=== PATIENT | female | born 1980 | race Caucasian/White ===

== ENCOUNTER 2016-08-28 08:22 | Day surgery (SDC) | payer OTHER ==
[~2016-08-28] VITALS: Ht 170.2 cm; Wt 117.0 kg
[~2016-08-28 08:22] MED LIST: LEVO175T5 PO; LOSA1TAB69 PO; METF500T4 PO; OXYB5TAB10 PO; PARO40TA3 PO; VERA120T84 PO
[2016-08-28 08:38] VITALS: BP 120/82; PULSE 93; RESP 16; O2SAT 96
[2016-08-28] MEDS ORDERED: 0.9% Sodium Chloride 1,000 ML ONE (09:19)
[2016-08-28] MEDS ORDERED: fentaNYL-PF 50 mCg/mL 2 mL Inj ONE (09:19)
[2016-08-28] MEDS ORDERED: 0.9% Sodium Chloride 1,000 ML IV PRN (09:37)
[2016-08-28] MEDS ORDERED: fentaNYL-PF 50 mCg/mL 2 mL Inj IVPUSH PRN (09:40)
[2016-08-28] MEDS ORDERED: Sodium Chloride LOK Flush 10 mL Syringe IV PRN (09:40)
--- NOTE | 2016-08-28 10:05 | PCM.ENDEGD ---
EGD Date of Service: Aug 28, 2016 Physician Sancehz Beauchamp MD Indication for Procedure Reflux Post Procedure Dx & Findings: Esophagitis Procedure Esophagogastroduodenoscopy PROCEDURE IN DETAIL: The patient was placed in left lateral decubitus position. Bite block was placed. Scope lubricated, placed in posterior pharynx, passed through the cricopharyngeus and esophagus, slowly advanced the entire length of the gastric pouch, pylorus was identified, scope passed through the pylorus and descending portion of duodenum, withdrawn in the antrum, retroflexed upon itself for view of fundus and cardia. Scope was then withdrawn through the oropharynx. Esophagus appeared normal up to the Z line which was at 39 cm. Inflammation edema scarring noted consistent with esophagitis. This is probably LA grade C. There were some evidence of esophagitis extending further up into the proximal esophagus. Biopsies obtained. Stomach was normal. Cardia fundus body antrum pylorus were visualized. Patient had normal mucosa without any ulcers mass or erosions. Normal rugae folds noted. Retroflexion was done. Stomach is easily inflatable and deflated using air. Scope advanced to the distal duodenum. Duodenum showed normal villous structures with normal folds. Impression LA grade C esophagitis status post biopsy Recommendations Prilosec 20 mg once a day. Antireflux diet and lifestyle modifications. Presedation Assessment Risks and Benefits Informed consent was obtained from the patient after all risks and benefits including but not limited to drug reaction, infection, pain, bleeding, perforation, as well as alternatives were discussed. Patient monitoring Continuous pulse oximetry, cardiac monitoring, blood pressure monitoring, IV access, and oxygen at 2L per nasal cannula. Periprocedural Fentanyl: Fentanyl 125mcg Incrementally Midazolam: Midazolam 6mg Incrementally Complications There were no periprocedural complications identified. Post Procedure Plan Post Procedure Recommendations 1. Restrict activities today. 2. Resume normal activities in the morning. 3. Resume medications. 4. GERD behavioral modification: - Avoid fatty, acidic, spicy, large meals - Do not lie down after meals - Do not eat or drink anything for at least 2 1/2 hours before going to bed at night - Discontinue tobacco and alcohol - Decrease or avoid caffeine - Avoid chocolate and mints - Decrease weight - Avoid aspirin and non steroidal anti-inflammatory agents (NSAID) such as Aleve, Advil, Mobic, Naproxen, Ibuprofen, etc 5. Add proton pump inhibitor. Take 30 minutes before 1st meal of the day. 6. Patient informed of normal post procedure side effects as bloating, drowsiness, blood streaking in the stool 7. If gastric biopsy reveal H.pylori, continue with appropriate treatment 8. If small bowel biopsy reveals celiac, continue with appropriate treatment 9. Please don't hesitate to call me with any questions Sanchez Beauchamp MD Aug 28, 2016 10:05
--- NOTE | 2016-08-28 10:30 | PCM.ENDCOL ---
Colonoscopy Date of Service: Aug 28, 2016 Physician Sanchez Beauchamp MD Indication for Procedure Blood in the stools Post Procedure Dx & Findings: Polyp hemorrhoids Procedure Colonoscopy Prep adequate Withdrawal 10 minutes PROCEDURE IN DETAIL: After unremarkable rectal examination Olympus video colonoscope was inserted into patient's anal canal spends the cecum. Landmarks were identified including the ileocecal valve and the appendiceal orifice. Scope was withdrawn systematically. In the transverse colon, there was a 3 mm polyp which was resected completely using cold snare. It appears that the polyp got disintegrated while retrieving. The mucosa of the cecum, ascending, transverse, descending, sigmoid, rectal mucosa lined with whitish, pink, smooth, glistening, normal-appearing mucosa, normal fine branching, underlying vascularity, normal haustra. The patient tolerated procedure and was transported to observation area. In the rectum retroflexion was done which showed some hemorrhoids. In the canal was inspected carefully in the way out hemorrhoids noted. Impression Polyp 1 status post complete removal however not retrieved because it probably got disintegrated Hemorrhoids Recommendation Repeat colonoscopy 5 years. Presedation Assessment Risks and Benefits Informed consent was obtained from the patient after all risks and benefits including but not limited to drug reaction, infection, pain, bleeding, perforation, as well as alternatives were discussed. Patient monitoring Continuous pulse oximetry, cardiac monitoring, blood pressure monitoring, IV access, and oxygen at 2L per nasal cannula. Periprocedural Fentanyl: Fentanyl 50mcg Incrementally Midazolam: Midazolam 2mg Incrementally Complications There were no periprocedural complications identified. Post Procedure Plan Post Procedure Recommendations 1. Restrict activities today. 2. Resume normal activities in the morning. 3. Resume medications. 4. Patient informed of normal post procedure side effects as bloating, drowsiness, blood streaking in the stool. 5. average risk CRCS. If colon polyps come back as: -Hyperplastic- can repeat colonoscopy in 10 years -Tubular adenoma- repeat colonoscopy in 5 years -Tubulovillous/villous adenoma- repeat colonoscopy in 3 years -If any dysplasia- return to clinic as soon as possible 6. Please don't hesitate to call me with any questions. Sanchez Beauchamp MD Aug 28, 2016 10:30
[2016-08-28 10:34] VITALS: BP 112/64; PULSE 92; RESP 14; O2SAT 92
[2016-08-28 10:44] VITALS: BP 103/67; PULSE 92; RESP 14; O2SAT 97
[2016-08-28 10:54] VITALS: BP 101/65; PULSE 95; RESP 14; O2SAT 97
--- NOTE | 2016-09-01 16:18 | PATH ---
SURGICAL PATHOLOGY Attending Physician:Sanchez Beauchamp M.D. CASE STATUS: Signed Out PATIENT NAME: CINDI CORMIER PID: [id number] : 1980 DATE COLLECTED:08/28/2016 15:41 SPECIMEN: Esophagus, Biopsy CLINICAL HISTORY: DISTAL ESOPHAGEAL BIOPSY FINAL DIAGNOSIS: DISTAL ESOPHAGUS BIOPSY: SQUAMOUS MUCOSA WITH INFLAMMATORY CHANGES CONSISTENT WITH REFLUX. Negative for intestinal/Marroquin' s metaplasia. Negative for dysplasia and malignancy. ICD10 code K21.0 GROSS DESCRIPTION: The specimen is received in one formalin filled container labeled with the patient's name, sublabeled "distal esophagus" and consists of 2 portions of tissue which aggregate to 0.2 x 0.2 x 0.2 CM. The specimen is entirely submitted in cassette. 08/29/2016 [facility] MICRO DESCRIPTION: See diagnosis. ICD-9 CODES: CPT CODES: 1: 57575 Electronically Signed Out Iveth Najera MD [facility] [address], [place] [address] Technical component performed at [facility], [address] [place] [address] [address], [place], [address]
== END 2016-08-28 23:59 | disposition home or self-care (01) ==
LOC: END 08:22
PROVIDERS: ATTEND Internal Medicine
DX: K63.5 Polyp of colon (principal); K64.9 Unspecified hemorrhoids; K21.0 Gastro-esophageal reflux disease with esophagitis; E11.9 Type 2 diabetes mellitus without complications; I10 Essential (primary) hypertension; E03.9 Hypothyroidism, unspecified
CPT/HCPCS: 43239; 45385; 88305; 99153; G0500; J2250; J3010; J7030